=== PATIENT | female | born 1960 | race Caucasian/White ===

== ENCOUNTER 2024-07-28 06:42 | Day surgery (SDC) | payer BC, SELFPAY | END 2024-07-28 10:45 | disposition home or self-care (01) | LOC: GI 06:42 | PROVIDERS: ATTENDING PHYSICIAN Internal Medicine Gastroenterology; FAMILY PHYSICIAN Family Medicine | DX: Z12.11 Encounter for screening for malignant neoplasm of colon (principal); D12.3 Benign neoplasm of transverse colon; K63.5 Polyp of colon; Z86.0101 Personal history of adenomatous and serrated colon polyps | CPT/HCPCS: 45380; 88305 ==

== ENCOUNTER → 2025-05-25 13:20 | Outpatient (REF) | payer BC, SELFPAY | LOC: HWRAD 13:20 | PROVIDERS: ATTENDING PHYSICIAN Internal Medicine Endocrinology, Diabetes & Metabolism; FAMILY PHYSICIAN Family Medicine | DX: E27.8 Other specified disorders of adrenal gland (principal) | CPT/HCPCS: 74150 ==

== ENCOUNTER → 2025-08-14 13:29 | Outpatient (REF) | payer BC, SELFPAY | LOC: RCS 13:29 | PROVIDERS: ATTENDING PHYSICIAN Physician Assistant; FAMILY PHYSICIAN Family Medicine | DX: I10 Essential (primary) hypertension (principal); I34.0 Nonrheumatic mitral (valve) insufficiency; R06.09 Other forms of dyspnea; R53.83 Other fatigue | CPT/HCPCS: 93306 ==